=== PATIENT | male | born 1950 | race Caucasian/White ===

== ENCOUNTER → 2020-10-08 | Outpatient (CLI) | payer MEDICARE ==
[~2020-10-08] MED LIST: LEVAQUIN500 MG PO; NORCO 10MG-325MG1 EA PO; URIBEL CAPSULE1 EACH PO
== END ==
LOC: US 12:39
PROVIDERS: ATTEND Family Medicine
DX: N28.1 Cyst of kidney, acquired (principal); E04.1 Nontoxic single thyroid nodule
CPT/HCPCS: 76536; 76770

== ENCOUNTER → 2020-11-16 | Outpatient (CLI) | payer MEDICARE | LOC: US 12:11 | PROVIDERS: ATTEND Family Medicine | DX: E04.2 Nontoxic multinodular goiter (principal) | CPT/HCPCS: 10005; 88172; 88173; 88305 ==